=== PATIENT | female | born 1985 | race Two or more races ===

== ENCOUNTER 2022-02-18 14:15 | Observation (INO) | payer MEDICAID ==
[~2022-02-18] VITALS: Ht 167.6 cm; Wt 71.7 kg
[2022-02-18] MEDS ORDERED: PREN-96 PO (15:43)
[2022-02-18] MEDS ORDERED: CERT200K SC (15:43)
== END 2022-02-18 16:10 | disposition home or self-care (01) ==
LOC: LDRP 14:15 → UNDOADMOB 14:15 → LDRP 14:30
PROVIDERS: ADMIT Obstetrics & Gynecology; ATTEND Obstetrics & Gynecology
DX: O26.892 Other specified pregnancy related conditions, second trimester (principal); R10.9 Unspecified abdominal pain; Z3A.25 25 weeks gestation of pregnancy; Z87.891 Personal history of nicotine dependence
CPT/HCPCS: 59025; 81002; 94760; G0378